=== PATIENT | female | born 1960 | race Caucasian/White ===

== ENCOUNTER → 2017-09-15 | Day surgery (SDC) | payer OTHER ==
[~2017-09-15] VITALS: Ht 162.6 cm; Wt 84.0 kg
[~2017-09-15] MED LIST: *morphine SULFATE 8 MG/ML PERIprocedure ONLY ONE; ACETAMINOPHEN 1000 MG/100 ML 100 ML IV ONE; ADDE30TA PO; CHLORHEXIDINE GLUCONATE 2 % 1 PACK (2 CLOTHS) TOPICAL PRN; CHLORHEXIDINE GLUCONATE 4% SOLN 120 ML BTL TOPICAL SCH; CLINDAMYCIN 600 MG PREMIX 50 ML IV ONE; CLINDAMYCIN 600 MG/NS 100 ML IV SCH; CLINDAMYCIN PHOS 600 MG/4 ML VIAL ONE; DEXAMETHASONE SOD PHOS 4 MG/ML VIAL IV ONE; DO NOT ADM ANY ANTICOAGULANT DRUGS PRN; EVEN500C3 PO; FAMOTIDINE 20 MG/2 ML VIAL ONE; GENTAMICIN SULFATE 80 MG/2 ML VIAL ONE; GINK60TA10 PO; LACTATED RINGER'S 1000 ML IV PRN; LEVO50TA4 PO; LIDOCAINE HCL 1% PF 5 ML SYRINGE OTHER ONE; METOPROLOL TARTRATE 25 MG TAB PO PRN; MIDAZOLAM HCL 2 MG/2 ML VIAL IV ONE; MORPHINE SULFATE 4 MG/ML INJ IV ONE; MORPHINE SULFATE 4 MG/ML INJ IV PUSH PRN; MULTTAB67 PO; NAPR500T2 PO; NITR1CAP37 PO; ONDANSETRON HCL 4 MG/2 ML VIAL IV PUSH ONE; ONDANSETRON HCL 4 MG/2 ML VIAL IVP PRN; OXYC1TAB63 PO; PERC7.5T13 PO; POVIDONE IODINE 5% (ANTISEPSIS KIT) 4 APPLICATIONS EACH NARE PRN; PROPOFOL 200 MG/20 ML AMP IV ONE; Post-op Orders (for Pharmacy) MISC XX ONE; SODIUM CHLOR 0.9% 250 ML INJ 250 ML IV ONE; SODIUM CHLOR 0.9% 250 ML INJ 250 ML ONE; SODIUM CHLORID 0.9% 500 ML IV PRN; VANCOMYCIN 1000 MG/NS 250 ML (for <70 kg) IV SCH; VANCOMYCIN HCL 1000 MG VIAL ONE; VITATAB56 PO; [UNRECOGNIZED DRUG - OTHER]; ceFAZolin 2 GM PREMIX 50 ML IV SCH; oxyCODONE/ACETAMINOPHEN 7.5 MG/325 MG TAB PO PRN
--- NOTE | 2017-09-15 08:34 | PD.OP ---
cc: Dandre Riggs MD Operative Report Date of Surgery: Sep 15, 2017 Preoperative Diagnosis: Displaced right ankle fracture Postoperative Diagnosis: Procedure: Open reduction internal fixation right ankle bimalleolar fracture, stress examination under fluoroscopy right ankle, open reduction internal fixation right ankle syndesmosis Anesthesia: Gen. Surgeon: Dandre Riggs Flame Annealing Machine Operator(s): KACIE Thomas PA-C The surgical procedure was assisted by my physician him assistant. My P.A. presence was necessary throughout this case for the manipulation and positioning of the surgical extremity. My P.A. was assisting me throughout the duration of this procedure. The skill set of a physician him assistant was medically necessary to complete this procedure. During the surgical case the surgical garment assembly supervisor was working at the back table and the physician him assistant was directly assisting me. Operation and Findings: Implants used : ITS Patient was seen and evaluated preoperatively and found to have a displaced right ankle fracture. Informed consent was obtained after a detailed discussion of risk and benefits of surgery. The operative site was marked. Patient was brought to the OR, placed on the OR table, and given IV sedation and general endotracheal anesthesia. IV antibiotics were given preoperatively. A timeout procedure was performed. The operative leg was prepped with alcohol followed by Hibiclens and draped in the usual sterile fashion. Attention was turned towards the distal fibula. A four-inch incision was made over the distal fibula. The subcutaneous tissue was dissected with Bovie. The fracture site was visualized. The fracture site was cleaned with curets. The fracture was now reduced. The fracture keyed into anatomic alignment. K-wires were used to h old provisional fixation. A lag screw was placed to compress fracture. A plate was selected and contoured to fit the distal fibula. The plate was provisionally held to bone with K-wires. 3.5 cortical screws were used to compress the plate to bone. Multiple screws were placed above and below the fracture. Next attention was turned towards the medial malleolus. The medial malleolus supposed through a 3 cm incision. Saphenous vein was retracted. Fracture was visualized. Fracture was cleaned with curettes. Fracture was now reduced and keyed into anatomic alignment. K wires were used to hold provisional fixation. 2 guidepins for the 4.0 cannulated screws were placed in a retrograde fashion across the fracture. Fluoroscopy was used to confirm guidepin placement. Cannulated drill was placed over the guidepin. 2 appropriate length screws were now placed. Good compression was applied. Fluoroscopy confirmed well aligned fracture with well-placed hardware. Next, attention was turned to the syndesmosis. The syndesmosis was stressed. There was widening of the syndesmosis with external rotation of the ankle. The syndesmosis was held in a reduced position. The ankle was held in a neutral position. 23.5 cortical screws were placed through the fibular plate into the tibia. The syndesmosis was now stabilized. Incisions were thoroughly irrigated. The subcutaneous tissue was closed with 3-0 Vicryl and the skin was closed with 3-0 nylon. Sterile dressings were applied. A well molded well- padded splint was applied. The patient was transferred to Recovery in stable condition. Needle and sponge counts were correct. Dandre Riggs MD Sep 15, 2017 08:34
[2017-09-15 10:35] VITALS: BP 121/81; PULSE 75; RESP 18; TEMP 97.6; O2SAT 97
--- NOTE | 2017-09-15 14:06 | RADRPT ---
EXAM DATE/TIME: 09/15/2017 08:07 [facility] COMPARISON: No previous studies available for comparison. INDICATIONS : Right ankle bimalleolar fracture repair. OR. MEDICAL HISTORY : None. SURGICAL HISTORY : None. ENCOUNTER: Initial ACUITY: 1 day PAIN SCORE: Non-responsive. LOCATION: Right ankle FINDINGS: 2 spot fluoroscopic images obtained in the operating room during a procedure demonstrates placement o f a lateral distal fibular side plate with multiple interlocking screw and 2 syndesmotic screws as we ll as 2 lag screws. There are 2 obliquely oriented partially threaded cannulated screws traversing th e medial malleolus. Ankle mortise is intact. CONCLUSION: Spot fluoroscopic images obtained during right ankle ORIF, as above. Seamus Hall MD on September 15, 2017 at 14:03 Board Certified Radiologist. This report was verified electronically.
--- NOTE | 2017-09-15 19:56 | EKG ---
Date Performed: 09/15/2017 Time Performed: 06:13:23 PTAGE: 57 years EKG: Sinus rhythm WITH SINUS ARRHYTHMIA Since previous tracing, no significant change noted NORMAL ECG PREVIOUS TRACING : 03/24/2015 13.23 DOCTOR: Nitesh Nova Interpretating Date/Time 09/15/2017 19:54:21
== END | disposition home or self-care (01) ==
LOC: HSDC 05:10
PROVIDERS: ATTEND Orthopaedic Surgery Orthopaedic Trauma
DX: S82.841A Displaced bimalleolar fracture of right lower leg, initial encounter for closed fracture (principal); E07.9 Disorder of thyroid, unspecified; F17.200 Nicotine dependence, unspecified, uncomplicated; W01.0XXA Fall on same level from slipping, tripping and stumbling without subsequent striking against object, initial encounter; Y93.89 Activity, other specified; Y92.016 Swimming-pool in single-family (private) house or garden as the place of occurrence of the external cause
CPT/HCPCS: 01480; 27814; 27829; 73600; 76000; 93005; 97163; C1713; G8987; G8988; J0131; J1100; J1580; J2250; J2270; J2405; J3010; J3370; J7050; J7120